=== PATIENT | female | born 1970 | race Caucasian/White ===

== ENCOUNTER 2024-11-15 14:08 | Emergency (ER) | payer OTHER, SELFPAY ==
[2024-11-15 14:10] VITALS: BP 153/92; PULSE 97; RESP 14; TEMP 36.6; O2SAT 96
[2024-11-15 14:18] VITALS: BP 153/92; PULSE 97; RESP 14; TEMP 36.6; O2SAT 96
--- NOTE | 2024-11-15 15:00 | DI.CT_ITS ---
Exam(s) CT CHEST PE CTA EXAM: CT CHEST PE CTA CLINICAL HISTORY: Left axillary abscess versus seroma near surg scar. TECHNIQUE: Imaging Protocol: Axial CT angiography was performed with multi- slice acquisition and multi-planar and/or 3D reconstructions. Lung Computer Aided Detection (CAD) was utilized. CONTRAST MATERIAL: Intravenous: Omnipaque 350 contrast volume:98 mL COMPARISON: No exams were available for comparison FINDINGS: Tracheobronchial tree: Patent where visualized. No bronchiectasis. Pulmonary parenchyma: No consolidation or dominant measurable mass. There is a 4 mm nodule in the right upper lobe adjacent to the minor fissure. There is atelectasis in the left lower lobe. Pulmonary Arteries: No evidence of filling defect to suggest pulmonary emboli. Mediastinum and Joan: No dominant adenopathy or fluid collection. The esophagus is unremarkable. Visualized thyroid gland: Unremarkable. Pleura: No effusion or pneumothorax. Heart: The heart is not dilated. Mild coronary artery calcification. No pericardial effusion. Aorta: Thoracic aorta non-dilated. No evidence of dissection. Mild atherosclerotic calcification is present. Upper abdomen: Unremarkable. Soft tissues: Patient has a left breast implant. There are surgical clips seen in the left axilla likely reflecting prior axillary node dissection. No soft tissue mass or focal fluid collection is seen in the left axilla. Bones: Within normal limits for the patient's age. IMPRESSION: 1. No evidence of pulmonary embolism, thoracic aortic dissection or aneurysm. 2. 4 mm right upper lobe pulmonary nodule. Solid nodules smaller than 6 mm do not require routine follow-up in all patients with high clinical risk; however, some nodules smaller than 6 mm with suspicious morphology, upper lobe location, or both may warrant follow-up at 12 months (grade 2A; weak recommendation, high-quality evidence). (Taehomorgan et al., 2017) Single solid noncalcified nodules. ???Solid nodules smaller than 6 mm (those 5 mm or smaller) do not require routine follow-up in patients at low risk (grade 1C; strong recommendation, low- or [id number] evidence). (Taehomorgan et al., 2017) 3. There is no evidence of an left axillary mass adenopathy or focal fluid collection. 4. Postsurgical changes of a left breast implant and left axillary node dissection. 5. No acute pulmonary process. RADIATION DOSE DELIVERED: 98.4mGy.cm Total DLP DATA REPOSITORY: All CT scans at this facility are submitted to the National Radiology Data Registry (NRDR) Dose Index Registry (DIR) with the [employer] (ACR). RADIATION OPTIMIZATION: All CT scans at this facility use at least one of these dose optimization techniques: automated exposure control; mA and/or kV adjustment per patient size (includes targeted exams where dose is matched to clinical indication); or iterative reconstruction.
--- NOTE | 2024-11-15 15:13 | W.ED.GENAD ---
Discharge Plan Disposition Patient Disposition: Home Condition: Good Discharge Details Clinical Impression: Seroma of breast, Lesion of right lung Primary Care Provider: Mally,Local ED Provider: Mulugeta Conner Home Meds and New Rx's Prescriptions: New cephalexin 500 mg capsule 500 mg PO QID 4 Days Qty: 16 0RF Discharge Instructions Instructions: Seroma Additional Instructions: At this time your workup has returned reassuring, there is no evidence of significant infection. There is no evidence of abscess or large fluid collection where the previous drainage was. Out of an abundance of caution we will do a short 5-day course of antibiotics to prevent any potential post drainage infection. Please take these as prescribed. Please take a probiotic to help maintain good gut health while on the antibiotics. You have been given a bottle here for the next 24 hours, and a prescription for the remainder of the 5-day total course has been sent to your pharmacy on file. Additionally we did find evidence of a small 4 mm nodule in your right lungs. It is likely that this is chronic, however it does need comparison from your previous CAT scans at [facility], and potential reassessment in the next 6 to 12 months depending on any change noted between old CAT scans and new. Please follow-up closely with your surgical oncologist. We have placed a referral with our surgeons for follow-up for this draining seroma lesion. They will contact you for an appointment time. If you notice any worsening of your symptoms, or any new symptoms such as vomiting, diarrhea, fever, chills, shortness of breath, chest pain, numbness, weakness, or fainting , please return immediately to the emergency department for reevaluation. Please follow up with your primary care provider as soon as possible for reassessment and reevaluation. As always, it was a pleasure participating in your medical care today. Discharge Data Discharge Date/Time-TO BE ENTERED AT DEPARTURE: 11/15/24 17:56 HPI General Date/Time Provider Initiated Documentation: 11/15/24 14:12. HPI Narrative: This is a pleasant 54-year-old female with a past medical history of secretory carcinoma breast cancer diagnosed and managed at [facility] with the first surgery with chemotherapy radiation and mastectomy in 2017, subsequent return of the cancer in 2019 in the surgical scar site with resultant radiation therapy and surgical excision, as well as a past medical history of lymphoma, mast cell disease, MS, hypertension, endometriosis, who presents today for draining lesion at the surgical site of her previous mastectomy. Patient states that chronically for the last year or 2 there has been a firm hard lump in the surgical site of her left breast. She does have a breast implant on that side, but this lump was separate from that. Last night she noticed it became somewhat red, and then began to have significant drainage and discharge. Discharge essentially stopped today, and she did notice some mild redness around the area as well. She believes that her bra strap does rub up against the area but denies any trauma to that area otherwise. She denies fever or chills. She denies any significant changes in her weight recently. She denies any night sweats. She denies any other complaints at this time. Related Data Home Medications ?Medication ?Instructions ?Recorded ?Confirmed cephalexin 500 mg capsule 500 mg PO QID 4 days #16 caps 11/15/24 Previous Rx's ?Medication ?Instructions ?Recorded cephalexin 500 mg capsule 500 mg PO QID 4 days #16 caps 11/15/24 Allergies Allergy/AdvReac Type Severity Reaction Status Date / Time nut - unspecified Allergy Severe Anaphylaxis Verified 11/15/24 14:16 Opioids - Morphine Analogues AdvReac Intermediate Other (See Verified 11/15/24 14:16 Comment) General Stated Complaint: Cellulitis PLACIDO: 3 Exam Narrative Exam Narrative: 1.Const: Well-nourished, Well-developed, appearing stated age 2.Eyes: PERRL, no conjunctival injection, and symmetrical lids. 3.ENT: Atraumatic external nose and ears. Moist MM. Neck: Symmetric, trachea midline, No thyromegaly. 4.CVS: +S1/S2, Peripheral pulses 2+ and equal in all extremities. Brisk capillary refill in all extremities. 5.RESP: Unlabored respiratory effort. Clear to auscultation bilaterally. No wheezes rales or rhonchi 6.GI: Soft, Nontender/Nondistended, No hepatosplenomegaly. No guarding or rebound. 7.MSK: Normocephalic/Atraumatic, Extremities w/o deformity or ttp No cyanosis or clubbing, Normal movement of all extremities 8.Skin: Warm, Dry. Left axilla demonstrates evidence of a 2-1/2 to 3 cm linear lesion with mild erythema surrounding that. No atypical fluctuance or induration locally at that spot however the breast implant is just anterior to it, which is fluctuant on palpation and appropriately so. No active drainage from the site. There is a single ropey lymph node more proximally from the scar site, but no other large lymphadenopathy. No other abnormalities on exam. 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 Sensation grossly intact, no focal neurologic deficits. 10.Psych: (AAO) x3. Appropriate mood and affect Course Vital Signs Vital signs: Vital Signs Temperature 36.6 C 11/15/24 14:10 Pulse 97 H 11/15/24 14:10 Respiratory Rate 14 11/15/24 14:10 Blood Pressure 153/92 H 11/15/24 14:10 Pulse Oximetry 96 11/15/24 14:10 Temperature 36.6 C 11/15/24 14:18 Temperature Source Temporal Artery Scan 11/15/24 14:18 Pulse 97 H 11/15/24 14:18 Respiratory Rate 14 11/15/24 14:18 Blood Pressure 153/92 H 11/15/24 14:18 Blood Pressure Position Sitting 11/15/24 14:18 Pulse Oximetry 96 11/15/24 14:18 Oxygen Delivery Method Room Air 11/15/24 14:18 Oxygen Flow Rate 0 11/15/24 14:18 Pain Level 4 11/15/24 14:18 Comment jaw hurts the most 11/15/24 14:18 Medical Decision Making This is a pleasant 54-year-old female with a past medical history of secretory carcinoma breast cancer diagnosed and managed at [facility] with the first surgery with chemotherapy radiation and mastectomy in 2017, subsequent return of the cancer in 2019 in the surgical scar site with resultant radiation therapy and surgical excision, as well as a past medical history of lymphoma, mast cell disease, MS, hypertension, endometriosis, who presents today for draining lesion at the surgical site of her previous mastectomy. Patient states that chronically for the last year or 2 there has been a firm hard lump in the surgical site of her left breast. She does have a breast implant on that side, but this lump was separate from that. Last night she noticed it became somewhat red, and then began to have significant drainage and discharge. Discharge essentially stopped today, and she did notice some mild redness around the area as well. She believes that her bra strap does rub up against the area but denies any trauma to that area otherwise. She denies fever or chills. She denies any significant changes in her weight recently. She denies any night sweats. She denies any other complaints at this time. Left axilla demonstrates evidence of a 2-1/2 to 3 cm linear lesion with mild erythema surrounding that. No atypical fluctuance or induration locally at that spot however the breast implant is just anterior to it, which is fluctuant on palpation and appropriately so. No active drainage from the site. There is a single ropey lymph node more proximally from the scar site, but no other large lymphadenopathy. No other abnormalities on exam. Symptoms are most concerning for a chronic seroma that has now subsequently drained, however abscess infection evidence of malignancy are certainly of concern. We will get CT imaging for further visualization of the area especially with her history of cancer. We will get basic labs, evaluate for infectious components, monitor closely and reassess. 5:21 PM Laboratory workup has returned, no white count bandemia or left shift. ESR and CRP are normal. Initial lactate was elevated but has improved after fluids. Electrolytes normal. Transaminases slightly elevated at 65 and 87 for AST and ALT respectively. Patient states that this is chronic for her. Procalcitonin normal. Symptoms notably inconsistent with active significant infection. I suspect it was a seroma that either ruptured through the old surgical site, or came to the surface and eventually dehisced. Out of an abundance of caution/concern, we will start the patient on a short course of Keflex to prevent any post drainage infection. Patient has no history of MRSA, so I do not see an indication for MRSA coverage at this time. CT imaging does not show any evidence of pulmonary embolism, mass, fluid collection or abscess. There is a single 4 mm right upper lobe pulmonary nodule. Patient is uncertain if these are new or old findings. We will send her CT scan to [facility] for her surgical oncologist to compare. She will follow-up with her surgical oncologist for reassessment on an outpatient basis. We did recommend repeat imaging in 6 to [address] a referral with our surgeons here for follow-up on this lesion. Patient did request follow-up with surgeons in this area. Additionally I discussed all findings with the patient and her as well. They are comfortable with plan. I have extensively reviewed the treatment plan and discharge instructions with the patient and their family. I have addressed all patient concerns at this time. The patient and family was made aware of what symptoms to monitor for that would warrant a return to the emergency department. Discussed the plan with the patient and family, they demonstrate verbal understanding and agreement with our assessment and plan at this time. The documentation in this chart was dictated using [employer] dictation software. Please excuse any dictation errors. FINDINGS: Tracheobronchial tree: Patent where visualized. No bronchiectasis. Pulmonary parenchyma: No consolidation or dominant measurable mass. There is a 4 mm nodule in the right upper lobe adjacent to the minor fissure. There is atelectasis in the left lower lobe. Pulmonary Arteries: No evidence of filling defect to suggest pulmonary emboli. Mediastinum and Joan: No dominant adenopathy or fluid collection. The esophagus is unremarkable. Visualized thyroid gland: Unremarkable. Pleura: No effusion or pneumothorax. Heart: The heart is not dilated. Mild coronary artery calcification. No pericardial effusion. Aorta: Thoracic aorta non-dilated. No evidence of dissection. Mild atherosclerotic calcification is present. Upper abdomen: Unremarkable. Soft tissues: Patient has a left breast implant. There are surgical clips seen in the left axilla likely reflecting prior axillary node dissection. No soft tissue mass or focal fluid collection is seen in the left axilla. Bones: Within normal limits for the patient's age. IMPRESSION: 1. No evidence of pulmonary embolism, thoracic aortic dissection or aneurysm. 2. 4 mm right upper lobe pulmonary nodule. Solid nodules smaller than 6 mm do not require routine follow-up in all patients with high clinical risk; however, some nodules smaller than 6 mm with suspicious morphology, upper lobe location, or both may warrant follow-up at 12 months (grade 2A; weak recommendation, high-quality evidence). (Taehomorgan et al., 2017) Single solid noncalcified nodules. ?Solid nodules smaller than 6 mm (those 5 mm or smaller) do not require routine follow-up in patients at low risk (grade 1C; strong recommendation, low- or [id number] evidence). (MacMahon et al., 2017) 3. There is no evidence of an left axillary mass adenopathy or focal fluid collection. 4. Postsurgical changes of a left breast implant and left axillary node dissection. 5. No acute pulmonary process. PFSH All Active Problems (Updated 11/15/24 @ 17:31 by Mulugeta Conner DO) Lesion of right lung (Acute) Seroma of breast (Acute) Social History Smoking/Tobacco Use Status: Never Smoking risk assessment performed?: Yes Alcohol Intake: current Alcohol Intake frequency: a few times a week Substance use type: does not use Housing: house Do you feel safe at home: Yes Do you feel safe in your relationship?: Yes PAWSS Have you Been Recently Intoxicated or Drunk Within the Last 30 days?: No Have you Ever Experienced Previous Episodes of Alcohol Withdrawal?: No Have you ever Experienced Withdrawal Seizures?: No Have you ever Experienced Delirium Tremens(DT)s?: No Have you ever undergone Alcohol Rehabilitation Treatment (i.e, inpt ot outpatient treatment programs)?: No Have you ever Experienced Blackouts?: No Have you ever Combined Alcohol with other Downers within the last 90 days?: No Have you ever Combined Alcohol with any other Substance of Abuse during the last 90 days?: No Positive Blood Alcohol level on Presentation? [PCS.BAL]: No Evidence of Increased Autonomic Activity (i.e. HR>120, tremor, sweating, agitation, nausea)?: No Result: 0
[2024-11-15 15:32] LABS: Abs Immature Grans 0.04 10^3/uL (0.0-0.06); HCT 40.8 % (36.0-46.0); HGB 14.1 g/dL (11.2-15.7); Immature Grans % 0.5 %; MCH 29.2 pg (27.0-33.0); MCHC 34.6 % (32.0-36.0); MCV 85 fL (80-95); MPV 9.0 fL (8.0-11.0); Platelet Count 354 10^3/uL (130-400); RBC 4.83 10^6/uL (3.93-5.22); RDW 13.2 % (11.7-14.6); RDW-SD 40.9 fL; WBC 7.90 10^3/uL (4.4-10.8)
[2024-11-15 15:57] LABS: C-Reactive Protein < 0.50 mg/dL (<or=0.5)
[2024-11-15 15:58] LABS: ALT 87 U/L (14-59); AST 65 U/L (15-37); Albumin 4.3 g/dL (3.4-5.0); Alkaline Phosphatase 139 U/L (46-116); Anion Gap 8.9 mmol/L (3-11); BUN 14 mg/dL (7-18); Bilirubin, Total 0.5 mg/dL (0.2-1.0); CO2 29.1 mmol/L (21.0-32.0); Calcium 10.1 mg/dL (8.5-10.1); Chloride 101 mmol/L (98-107); ESR 3 mm/hr (0-30); Estimated GFR 76.44 (mL/min/1.73m2); Glucose 112 mg/dL (74-106); Potassium 3.6 mmol/L (3.5-5.1); Sodium 139 mmol/L (136-145); Total Protein 7.1 g/dL (6.4-8.2)
[2024-11-15 16:19] LABS: Procalcitonin < 0.10 ng/mL
[2024-11-15] MEDS: Omnipaque 350 MG/ML 100 ML BTL IJ (16:23)
[2024-11-15] MEDS: Normal Saline - Diluent 50 ML VIAL IJ (16:23)
[2024-11-15] MEDS: Normal Saline Flush 10 ML SYR IVP (16:24)
[2024-11-15] MEDS: Normal Saline 500 ML IV (16:39)
[2024-11-15 17:56] VITALS: BP 136/82; PULSE 76; RESP 16; TEMP 36.7; O2SAT 98
== END 2024-11-15 17:56 | disposition home or self-care (01) ==
PROVIDERS: Emergency Provider Student in an Organized Health Care Education/Training Program
DX: N64.89 Other specified disorders of breast (principal); R91.8 Other nonspecific abnormal finding of lung field
CPT/HCPCS: 99284 ×2; 36415; 71275; 80053; 84145; 85652; 96360; 83605; 85025; 86140; J3490

== ENCOUNTER 2024-11-27 03:33 | Outpatient (CLI) | payer OTHER, SELFPAY ==
--- NOTE | 2024-11-27 06:30 | DI.US_ITS ---
Exam(s) US BREAST LT COMPLETE MG MAMMO DIAGNOSTIC BI EXAM: MG MAMMO DIAGNOSTIC BI AND COMPLETE LEFT BREAST ULTRASOUND CLINICAL HISTORY: H/O LT BREAST CA, ? RECURRENCE,C50.912,LT BREAST WOUND. TECHNIQUE: BILATERAL CC AND MLO WELL ADDITIONAL VIEWS mammographic images were obtained with 3D tomosynthesis technique and utilizing computer aided detection (CAD). COMPLETE LEFT BREAST ULTRASOUND was performed including all 4 quadrants as well as the axillary region. COMPARISON: Prior outside mammograms were reviewed. Chest CT scan of 11/15/2024 was also reviewed. . This 54-year-old patient has had recurrent left breast malignancy with 1st surgical procedure (2018) and subsequent procedures performed in [facility] in [place]. She has a left breast silicon prosthesis. Approximately 1 week ago she had splitting of the skin and some discharge in the lateral aspect of the left breast axillary tail region. Adjacent the scar region. Patient forms me that she has had prior recurrence of neoplasm at scar level. She has also had a remote biopsy of the opposite-right breast which was negative for malignancy. FINDINGS: DIAGNOSTIC BILATERAL MAMMOGRAM: There are no new significant findings in the immediate vicinity of the biopsy marker device in the right breast. Benign-appearing microcalcifications in the right breast are unchanged. In the left breast the silicon implant is noted, appearing retropectoral. There are no new mammographic findings in left breast. No new spiculated masses nor malignant-appearing microcalcification groups. Multiple surgical clips in left axilla are noted We proceeded with breast ultrasound: COMPLETE LEFT BREAST ULTRASOUND: The only significant focal findings are in the axillary tail region which are directly subjacent to over skin/scar opening region. This is comprised of 3 similar appearing wider than taller non-cystic nodules arranged in string of nnamdi fashion, the largest of these measuring 10 mm x 3 mm. Total measurement of all three is 25 mm x 4 mm. All exhibit slightly increased through transmission. None exhibit decreased through transmission. Internal echogenic components do not appear mobile and there is no tract visible to the skin. These do not have the appearance of a typical lymph nodes. Higher up in the ipsilateral axilla there is no obvious adenopathy evident. IMPRESSION: 1. No radiographic evidence of malignancy in the right breast. 2. In the left breast there are three contiguous solid wider than taller nodules in the axillary tail region (seen only on ultrasound) which exactly correspond to her clinically visible finding. Ultrasound-guided core biopsy recommended for final histologic diagnosis. This patient informs me that she is going to be seen later this week [facility]. Decision as to perform MRI prior to biopsy will be made at that institution. . The patient was informed of the findings and follow-up by myself recommendations prior to leaving the department today. BI-RADS Category 4 - Suspicious Abnormality: Biopsy should be considered Breast Density - Category C - The breast are heterogeneously dense, which may obscure small masses. Breast density Category C or D implies that the patient has dense breast tissue. Dense breast tissue can make it harder to find cancer on a mammogram. Dense breast tissue is also associated with an increased risk of breast cancer. This information about the result of the mammogram report was provided to the patient to raise their awareness. Use this report when you speak with the patient about their risks for breast cancer, which includes their family history. At that time, you may recommend additional screening tests (Ultrasound or MRI) as these tests may add significant information. A negative radiographic report should not delay biopsy if a dominant or clinically suspicious mass is present. Up to ten percent of cancers are not identified on mammography. A negative report may reinforce clinical impression. Adenosis and dense breasts may obscure an underlying neoplasm. False positive reports average 6 to 10%. Patient will receive a letter notifying them of these results.
== END 2024-11-27 03:53 ==
LOC: DI 03:33
PROVIDERS: Visit Provider Student in an Organized Health Care Education/Training Program
DX: C50.912 Malignant neoplasm of unspecified site of left female breast (principal); Z98.82 Breast implant status
CPT/HCPCS: 76642; 77062; 77066; G0279